=== PATIENT | male | born 1970 | race Caucasian/White ===

== ENCOUNTER 2020-02-23 19:51 | Emergency (ER) | payer OTHER, SELFPAY ==
--- NOTE | 2020-02-23 20:04 | ED.SKABFB ---
HPI - Skin/Abscess/Foreign Bdy General Chief complaint: Wound/Laceration Stated complaint: spider bite Time Seen by Provider: 02/23/20 19:51 Source: patient and RN notes reviewed Mode of arrival: ambulatory Limitations: no limitations History of Present Illness complaint: insect bite/sting Onset (ago): day(s) (2) Location: generalized (Right abdomen) Severity: moderate Quality: burning and pruritic Pain Consistency: constant Associated symptoms: chills Treatments prior to arrival: OTC topical medication Related Data Home Medications Medication Instructions Recorded Confirmed No Home Medications 02/23/20 02/23/20 Allergies Allergy/AdvReac Type Severity Reaction Status Date / Time No Known Allergies Allergy Verified 02/23/20 20:16 Review of Systems Review of Systems: All systems reviewed & are unremarkable except as noted in HPI and below PMFSH Past Medical History Medical History (Updated 02/23/20 @ 20:32 by Carlo Maxwell MD) No active medical problems Surgical History Surgical History (Updated 02/23/20 @ 20:29 by Carlo Maxwell MD) No pertinent past surgical history Social History Social History (Updated 02/23/20 @ 20:30 by Carlo Maxwell MD) Tobacco type: smokeless tobacco Smokeless tobacco user: chewing tobacco Alcohol intake: never Substance use: never Gender identity (if verbalized by the patient): Male Exam Const: General: healthy appearing and no acute distress Nutritional Appearance: well nourished and obese centrally obese Orientation/consciousness: patient oriented x3 HENMT: Head: normal to inspection Ears: external ears normal Face and sinus: normal facial exam Eyes: Conjunctivae: conjunctivae normal Pupils: Equal, round and reactive pupils present EOM: EOMs intact bilaterally Neck: Neck: normal visual inspection Resp: Effort & Inspection: normal respiratory effort Auscultation: clear to auscultation bilaterally Cardio: Rate: regular rate Rhythm: regular rhythm GI: Auscultation: normal bowel sounds Back/Spine/Pelvis: Cervical Spine: cervical ROM normal Thoracic/Lumbar Spine: thoraco-lumbar ROM normal Skin: General skin exam: normal color Rashes: rashes noted right lower abdomen size (20X12 cm erythema with central eschar 3X5 mm), borders sharp; not raised, color blanching, morphology, surface blanching, erythematous and warm; with no discharge and tender (only centrally); fluctuant not assessed Neuro: General: patient oriented x3, moves all extremities and no focal motor deficits Speech: normal speech Gait exam (Neuro): Normal gait present Extrem: General: normal to inspection and no clubbing, cyanosis or edema Psych: Appearance: grossly normal and well kempt Mental Status: mental status grossly normal Affect: normal affect Attitude: cooperative Thought content: Yes Normal thought content present Course Course Emergency Course: I discussed the natural progression of a possible brown recluse spider bite. He should continue to monitor the area and if a large area of necrosis develops he should see his primary care for further evaluation. Discharge Plan Discharge Clinical Impression: Spider bite Qualifiers: Encounter type: initial encounter Injury intent: accidental or unintentional Qualified Code(s): T63.301A - Toxic effect of unspecified spider venom, accidental (unintentional), initial encounter Patient Disposition: Home, Self-Care Condition: Stable Instructions: Brown Recluse Spider Bite (ED) Additional Instructions: use [id number] Zyrtec or Clauida or Claritin. The once daily does may be taken twice daily until healed. If significant tissue damage occurs may need to see primary care physician for plastic surgery evaluation. Prescriptions: No Action No Home Medications RF: 0 Follow-up/Referrals: Donn Dueñas MD [Primary Care Provider] - Time of Disposition: 20:32
[2020-02-23 20:07] VITALS: BP 147/94; PULSE 83; RESP 20; TEMP 37.6; O2SAT 97
== END 2020-02-23 20:43 | disposition home or self-care (01) ==
PROVIDERS: Emergency Provider Emergency Medicine; PCP Internal Medicine
DX: T63.301A Toxic effect of unspecified spider venom, accidental (unintentional), initial encounter (principal)
CPT/HCPCS: 99281; 99282

== ENCOUNTER 2020-06-30 15:47 | Outpatient (CLI) | payer OTHER, SELFPAY ==
[2020-06-30 15:59] LABS: Basophils Absolute Auto 0.07 K/mm3 (0.00-0.10); Basophils Percent Auto 0.9 % (0.0-1.0); Eosinophils Absolute Auto 0.45 K/mm3 (0.02-0.50); Eosinophils Percent Auto 5.7 % (1.0-6.0); Hematocrit 39.6 % (40.0-54.0); Hemoglobin 13.7 g/dL (14.0-18.0); Immature Granulocyte Absolute 0.02 K/mm3 (0.00-0.00); Immature Granulocyte Percent A 0.3 % (0.0-0.0); Lymphocytes Absolute Auto 3.31 K/mm3 (1.10-4.50); Lymphocytes Percent Auto 41.7 % (18.0-42.0); Mean Corpuscular HGB Conc 34.6 g/dL (32.0-36.0); Mean Corpuscular Hemoglobin 29.4 pg (27.0-31.0); Monocytes Absolute Auto 0.84 K/mm3 (0.10-0.90); Monocytes Percent Auto 10.6 % (2.0-11.0); Neutrophils Absolute Auto 3.3 K/mm3 (1.7-7.2); Neutrophils Percent Auto 40.8 % (50.0-70.0); Platelet Count Result 239 K/mm3 (150-420); Red Blood Count 4.66 M/mm3 (4.70-6.10); Red Cell Distribution Width 13.5 % (11.6-14.4); White Blood Count 7.9 K/mm3 (4.8-10.8)
[2020-06-30 16:09] LABS: Add Urine Microscopic? YES; Appearance Urine Clear (Clear); Bilirubin Urine Negative (Negative); Blood Urine Negative (Negative); Color Urine Yellow (Yellow); Glucose Urine UA Negative (Negative); Ketones Urine Negative (Negative); Leukocyte Esterase Ur Negative (Negative); Nitrate Urine Negative (Negative); Protein Urine 1+ (Negative); Specific Grav Ur >= 1.030 (1.010-1.020); Urobilinogen Urine 0.2 mg/dL (0.2-1.0)
[2020-06-30 16:17] LABS: Bacteria Urine Trace /hpf; RBC Urine 0-2 /hpf (0-2); WBC Urine 0-3 /hpf (0-3)
[2020-06-30 17:07] LABS: Alanine Aminotransferase 10 U/L (16-63); Alkaline Phosphatase 66 U/L (46-116); Anion Gap 9 mmol/L (8-16); Aspartate Amino Transferase 17 U/L (15-37); Bilirubin,Total 1.6 mg/dL (0.00-1.00); Blood Urea Nitrogen 18 mg/dL (7-18); Calcium 8.7 mg/dL (8.5-10.1); Carbon Dioxide 25 mmol/L (21-32); Chloride 105 mmol/L (98-108); Cholesterol 137 mg/dL (0-200); Estimated Glomerular Filt Rate > 60; Glucose 97 mg/dL (70-99); HDL Direct 43 mg/dL (40-60); LDL Cholesterol Calculated 64 mg/dL (<130); Osmolality Calculated 289 mOsm/kg (285-295); Potassium 3.8 mmol/L (3.5-5.1); Sodium 139 mmol/L (136-145); Thyroid Stimulating Hormone 2.15 uIU/mL (0.36-3.74); Total Protein 7.7 g/dL (6.4-8.2); Triglycerides 148 mg/dL (0-150)
== END 2020-06-30 15:48 | disposition home or self-care (01) ==
LOC: CHSLAB 15:48
PROVIDERS: PCP Internal Medicine; Visit Provider Internal Medicine
DX: Z00.00 Encounter for general adult medical examination without abnormal findings (principal); I10 Essential (primary) hypertension
CPT/HCPCS: 36415; 80053; 80061; 81001; 84443; 85025

== ENCOUNTER 2022-01-18 12:26 | Day surgery (SDC) | payer OTHER, SELFPAY ==
[2021-12-19 11:02] VITALS: BMI 29.2
[2022-01-04 09:02] VITALS: BMI 29.1
[2022-01-18 13:13] VITALS: BP 153/77; PULSE 50; RESP 16; TEMP 36.7; O2SAT 100
[2022-01-18] MEDS: LACTATED RINGERS 1,000 ML 150 ML IV CONT (13:29)
--- NOTE | 2022-01-18 13:41 | WPDANESEPPF ---
Anes - Initial Pre Proc Eval Procedure: Operation Date: 01/18/22 14:15 Proposed Procedures p Diagnostic Colonoscopy - Esteban Sheffield MD Date/Time: 01/18/22 13:41 Surgeon: Esteban Sheffield MD Pre Op Diagnosis: Bright Red Blood per Rectum Patient Data Age: 51 Gender: M Height: 1.73 m Weight: 87 kg Last Vital Signs Temp 36.7 C 01/18/22 13:13 Pulse 50 L 01/18/22 13:13 Resp 16 01/18/22 13:13 BP 153/77 H 01/18/22 13:13 Pulse Ox 100 01/18/22 13:13 O2 Del Method Room Air 01/18/22 13:13 Allergies Allergy/AdvReac Type Severity Reaction Status Date / Time No Known Allergies Allergy Verified 01/04/22 08:42 Home Medications Medication Instructions Recorded Confirmed Type duloxetine 20 mg capsule,delayed 20 mg PO HS 12/08/21 01/04/22 History release losartan 25 mg tablet 25 mg PO HS 12/08/21 01/04/22 History peg 3350-electrolytes 236 240 ml PO Q10M #4,000 mL 12/19/21 Rx gram-22.74 gram-6.74 gram-5.86 gram solution (Golytely) Patient hx anesthesia problems: none Family hx anesthesia problems: none Results Review: All pre-operative results and documents have been reviewed as part of the pre-operative evaluation. [facility] Past Medical History Medical History HTN (hypertension) No active medical problems Overweight (BMI 25.0-29.9) Surgical History Surgical History History of ear surgery 2001 No pertinent past surgical history Social History Social History Smoking packs per day: 1 Smoking cigarettes per day: 20.0 Years smoked: 25 Smoking pack-years: 25.00 Smoking status: Former smoker Tobacco type: cigarettes and smokeless tobacco Smokeless tobacco user: chewing tobacco Additional smoking assessment comments: QUIT SMOKING CIGARETTES 5 YRS AGO, CHEWS TOBACCO CURRENTLY Alcohol intake: never Substance use: never Gender identity (if verbalized by the patient): Male Spiritual care concerns: No Anes - Eval Final PreProcedure Day of Procedure 01/18/22 13:41 Patient weight: overweight Heart: regular rate and rhythm Lungs: clear to auscultation Airway: Mallampati scale class II Neurological: alert and oriented Last oral intake: >/= 8 hours ASA classification: II Emergent: no Anesthetic plan: proceed Anesthesia type and monitoring: general GIVS and standard monitoring Results Review: All pre-operative results and documents have been reviewed as part of the pre-operative evaluation. Informed Consent: The patient's anesthetic plan and its attendant risks and benefits were discussed with the patient/family/POA. Questions were solicited and answers provided to the satisfaction of the patient/family/POA.
--- NOTE | 2022-01-18 14:04 | PM.HPGS ---
History of Present Illness History of Present Illness Consent: Risks, benefits, and alternatives have been discussed and questions answered. Patient agrees to proceed with procedure. Chief complaint: Bright Red Blood per Rectum Narrative: Miguel Romo is a 51 year old male here for first colonoscopy, had hematochezia Review of Systems Constitutional: Constitutional: Denies headache(s) and Denies weakness Eyes: Eyes: Denies blurry vision ENT: Reports Normal hearing present, Denies headache(s) and Denies neck pain Cardiovascular: Cardiovascular: Denies chest pain and Denies dyspnea Respiratory: Respiratory: Denies dyspnea Gastrointestinal: Gastrointestinal: Reports no additional gastrointestinal complaints Genitourinary: Genitourinary: Denies dysuria Musculoskeletal: Musculoskeletal: Denies neck pain Integumentary/Breasts: Skin/Breast: Denies dry skin Neurologic: Reports Normal hearing present, Denies headache(s) and Denies weakness Psychiatric: Psychiatric: Denies anxiety Endocrine: Endocrine: Denies change in body appearance Hematologic/Lymphatic: Hematologic/Lymphatic: Denies easy bleeding Allergic/Immunologic: Allergic/Immunologic: Denies urticaria PMFSH Past Medical History Medical History (Updated 01/18/22 @ 14:04 by Esteban Sheffield MD) Hematochezia HTN (hypertension) No active medical problems Overweight (BMI 25.0-29.9) Surgical History Surgical History History of ear surgery 2001 No pertinent past surgical history Social History Social History Smoking packs per day: 1 Smoking cigarettes per day: 20.0 Years smoked: 25 Smoking pack-years: 25.00 Smoking status: Former smoker Tobacco type: cigarettes and smokeless tobacco Smokeless tobacco user: chewing tobacco Additional smoking assessment comments: QUIT SMOKING CIGARETTES 5 YRS AGO, CHEWS TOBACCO CURRENTLY Alcohol intake: never Substance use: never Gender identity (if verbalized by the patient): Male Spiritual care concerns: No Meds Home Medications and Allergies Home Medications Medication Instructions Recorded Confirmed Type duloxetine 20 mg capsule,delayed 20 mg PO HS 12/08/21 01/04/22 History release losartan 25 mg tablet 25 mg PO HS 12/08/21 01/04/22 History peg 3350-electrolytes 236 240 ml PO Q10M #4,000 mL 12/19/21 Rx gram-22.74 gram-6.74 gram-5.86 gram solution (Golytely) Allergies Allergy/AdvReac Type Severity Reaction Status Date / Time No Known Allergies Allergy Verified 01/04/22 08:42 Vital Signs Vital Signs - 24 hr 01/18/22 13:13 Temperature 98.0 F Pulse Rate 50 L Respiratory Rate 16 Blood Pressure 153/77 H Pulse Oximetry 100 Oxygen Delivery Room Air Exam Const: General: comfortable and no acute distress HENMT: General nose exam: Normal nares present Eyes: General: appearance normal, both eyes and all related structures Neck: Neck: no JVD Resp: Auscultation: clear to auscultation bilaterally Cardio: Rate: regular rate Rhythm: regular rhythm GI: Inspection: non-distended GI Palp: Yes Soft to palpation Skin: General skin exam: normal color Neuro: General: gait normal Speech: normal speech Extrem: General: normal to inspection Psych: Mental Status: mental status grossly normal Assessment and Plan Assessment and plan (1) Hematochezia: Code(s): K92.1 - Melena Status: Acute Assessment and Plan: probably perianal but needs colonoscopy
[2022-01-18 14:25] VITALS: BP 124/80; PULSE 59; RESP 14; O2SAT 97
[2022-01-18 14:35] VITALS: BP 112/84; PULSE 55; RESP 14; O2SAT 100
--- NOTE | 2022-01-18 14:37 | WPDANESPN ---
Anes - Prog Note Post-Op Date/Time: 01/18/22 14:37 Cardiovascular status: normal Respiratory status: normal Airway patency: baseline Mental status: baseline Post-Op hydration status: normal Vital Signs: Last Vital Signs Temp 36.7 C 01/18/22 13:13 Pulse 50 L 01/18/22 13:13 Resp 16 01/18/22 13:13 BP 153/77 H 01/18/22 13:13 Pulse Ox 100 01/18/22 13:13 O2 Del Method Room Air 01/18/22 13:13 Pain Score (VAS): 0 I/O: Intake & Output 01/17/22 01/18/22 01/18/22 23:59 07:59 15:59 Intake Total 400 Balance 400 Patient Feedback: Patient satisfied with anesthetic care.
[2022-01-18 14:45] VITALS: BP 140/93; PULSE 63; RESP 14; O2SAT 100
== END 2022-01-18 15:05 | disposition home or self-care (01) ==
PROVIDERS: PCP Internal Medicine; Visit Provider Internal Medicine Gastroenterology
PROC: 0DJD8ZZ Inspection of Lower Intestinal Tract, Via Natural or Artificial Opening Endoscopic (ICD-10-PCS; CPT 45378; principal; 2022-01-18 14:15)
DX: K92.1 Melena (principal)
CPT/HCPCS: 45378

== ENCOUNTER 2022-11-22 08:26 | Outpatient (CLI) | payer OTHER, SELFPAY ==
--- NOTE | ~2022-11-22 | XR_ITS ---
EXAMINATION: CHEST-TWO VIEW 11/22/2022 19:05 INDICATION: Hypertension and shoulder pain PROCEDURE: 2 view chest COMPARISON: Comparison to multiple prior studies sequentially, with oldest reviewed study dated 07/2014. FINDINGS: The lungs are clear. The cardiomediastinal silhouette is within normal limits. There are no pleural effusions. There is no pneumothorax suspected. IMPRESSION: 1: NO ACUTE CARDIOPULMONARY DISEASE. Reviewed, dictated and finalized at location L.
--- NOTE | ~2022-11-22 | XR_ITS ---
SHOULDER 2+ VIEWS LT 11/22/2022 INDICATION: Left shoulder pain PROCEDURE: 4 views left shoulder COMPARISON: No prior studies for comparison. FINDINGS: Fracture, dislocation or subluxation is not identified. The soft tissues appear within norm al limits. No foreign bodies are identified. IMPRESSION: 1: NO ACUTE BONE OR JOINT ABNORMALITY IDENTIFIED. Reviewed, dictated and finalized at location L.
--- NOTE | ~2022-11-22 | XR_ITS ---
FOOT 3+ VIEWS RT 11/22/2022 INDICATION: Right foot pain PROCEDURE: 4 views right foot COMPARISON: No prior studies for comparison. FINDINGS: Fracture, dislocation or subluxation is not identified. Lisfranc joint intact. The soft tis sues appear within normal limits. No foreign bodies are identified. IMPRESSION: 1: NO ACUTE BONE OR JOINT ABNORMALITY IDENTIFIED. Reviewed, dictated and finalized at location L.
[2022-11-23 13:21] LABS: Alanine Aminotransferase 23 U/L (16-63); Anion Gap 7 mmol/L (8-16); Aspartate Amino Transferase 16 U/L (15-37); Bilirubin,Total 1.6 mg/dL (0.00-1.00); Blood Urea Nitrogen 20 mg/dL (7-18); Calcium 8.7 mg/dL (8.5-10.1); Carbon Dioxide 28 mmol/L (21-32); Chloride 108 mmol/L (98-108); Estimated Glomerular Filt Rate > 60; Glucose 105 mg/dL (70-99); Osmolality Calculated 298 mOsm/kg (285-295); Potassium 4.2 mmol/L (3.5-5.1); Sodium 143 mmol/L (136-145); Uric Acid 5.5 mg/dL (3.5-7.2)
[2022-11-23 13:22] LABS: Albumin Level 3.5 g/dL (3.4-5.0); Alkaline Phosphatase 71 U/L (46-116); Cholesterol 135 mg/dL (0-200); HDL Direct 52 mg/dL (40-60); LDL Cholesterol Calculated 75 mg/dL (<130); Prostate Specific Antigen 1.5 ng/mL (< OR = 4.0); Total Protein 6.9 g/dL (6.4-8.2); Triglycerides 40 mg/dL (0-150)
[2022-11-23 13:23] LABS: Thyroid Stimulating Hormone 1.55 uIU/mL (0.36-3.74)
[2022-11-23 14:08] LABS: Basophils Absolute Auto 0.08 K/mm3 (0.00-0.10); Basophils Percent Auto 1.4 % (0.0-1.0); Eosinophils Absolute Auto 0.54 K/mm3 (0.02-0.50); Eosinophils Percent Auto 9.2 % (1.0-6.0); Hematocrit 40.7 % (40.0-54.0); Hemoglobin 13.7 g/dL (14.0-18.0); Immature Granulocyte Absolute 0.01 K/mm3 (0.00-0.00); Immature Granulocyte Percent A 0.2 % (0.0-0.0); Lymphocytes Absolute Auto 1.93 K/mm3 (1.10-4.50); Mean Corpuscular HGB Conc 33.7 g/dL (32.0-36.0); Mean Corpuscular Hemoglobin 29.4 pg (27.0-31.0); Mean Corpuscular Volume 87.3 fL (78.0-102.0); Mean Platelet Volume 9.8 fl (8.7-11.0); Monocytes Absolute Auto 0.69 K/mm3 (0.10-0.90); Monocytes Percent Auto 11.8 % (2.0-11.0); Neutrophils Absolute Auto 2.6 K/mm3 (1.7-7.2); Neutrophils Percent Auto 44.4 % (50.0-70.0); Platelet Count Result 223 K/mm3 (150-420); Red Blood Count 4.66 M/mm3 (4.70-6.10); Red Cell Distribution Width 13.8 % (11.6-14.4); White Blood Count 5.8 K/mm3 (4.8-10.8)
[2022-11-23 15:00] LABS: CRP < 0.5 mg/dL (0.0-0.9)
[2022-11-23 15:50] LABS: Hemoglobin A1C 5.1 % (<5.7)
== END 2022-11-22 08:27 | disposition home or self-care (01) ==
LOC: CHSLAB 17:21
PROVIDERS: PCP Internal Medicine; Visit Provider Internal Medicine
DX: R73.09 Other abnormal glucose (principal); I10 Essential (primary) hypertension; M25.512 Pain in left shoulder; M25.571 Pain in right ankle and joints of right foot; Z12.5 Encounter for screening for malignant neoplasm of prostate
CPT/HCPCS: 36415; 71046; 73030; 73630; 80053; 80061; 83036; 84153; 84443; 84550; 85025; 86140; G0103